=== PATIENT | female | born 1940 | race Two or more races ===

== ENCOUNTER 2019-11-26 14:58 | Emergency (ER) | payer MEDICARE, MEDICAID ==
[~2019-11-26] VITALS: Ht 149.9 cm; Wt 77.5 kg
[~2019-11-26 14:58] MED LIST: ALLO300T PO; AMLO-150 PO; ASPI-496 PO; ATOR40TA78 PO; CALC600T4 PO; CARV-39 PO; CARV6.2512 PO; CIPR500T3 PO; CLON0.1T22 PO; FURO20TA3 PO; FURO40TA6 PO; GLUC100015 PO; GUAI600T80 PO; HYDR-3237 PO; HYDR-3343 PO; IPRA3AMP30 NPPB; LEVO25TA4 PO; LEVO500T47 PO; LOVA-41 PO; METF500T17 PO; METR500T PO; MULT1TAB9 PO; OMEG1CAP2 PO; OMEP40CA42 PO; ONDA4TAB10 PO; PANT40TA5 PO; POTASSIUM CL ER PO; PRED20TA PO; TELM80TA PO; TEMA15CA6 PO; VITA1TAB26 PO; [UNRECOGNIZED DRUG - OTHER] PO; vit d PO
[2019-11-26] MEDS ORDERED: HYDROcodone/APAP 5/325 TABLET ONE (15:46)
[2019-11-26] MEDS ORDERED: HYDROcodone/APAP 5/325 TABLET PO PRN (16:00)
[2019-11-26 16:46] VITALS: BP 120/72
== END 2019-11-26 17:02 | disposition home or self-care (01) ==
LOC: ED 16:40
DX: S40.012A Contusion of left shoulder, initial encounter (principal); S20.212A Contusion of left front wall of thorax, initial encounter; R00.1 Bradycardia, unspecified; I10 Essential (primary) hypertension; W01.0XXA Fall on same level from slipping, tripping and stumbling without subsequent striking against object, initial encounter; Y93.89 Activity, other specified; Y92.410 Unspecified street and highway as the place of occurrence of the external cause; Y99.8 Other external cause status
CPT/HCPCS: 71045; 93005; 99284